=== PATIENT | female | born 2000 | race Caucasian/White ===

== ENCOUNTER 2024-07-25 11:25 | Day surgery (SDC) | payer OTHER ==
[~2024-07-25] VITALS: Ht 170.2 cm; Wt 64.4 kg
[~2024-07-25 11:25] MED LIST: LR 1,000 ML IV SCH; NOXI1TAB PO; PRENTAB9 PO
[2024-07-25 12:13] LABS: BASO % 0.3 % (0.0-1.0); EOS # 0.1 10^3/uL (0.0-0.5); EOS % 2.2 % (0.0-3.0); HEMATOCRIT 36.8 % (36.0-47.0); HEMOGLOBIN 12.3 g/dl (12.0-15.5); LYMPH # 1.4 10^3/uL (1.5-5.0); LYMPH % 24.5 % (24.0-44.0); MEAN CORPUSCULAR HEMOGLOBIN 29.9 pg (27.0-33.0); MEAN CORPUSCULAR HGB CONC 33.4 g/dl (32.0-36.5); MEAN CORPUSCULAR VOLUME 89.5 fl (80.0-96.0); MONO # 0.5 10^3/uL (0.0-0.8); MONO % 7.8 % (2.0-8.0); NEUTROPHILS # 3.8 10^3/uL (1.5-8.5); NEUTROPHILS % 64.9 % (36.0-66.0); PLATELET COUNT, AUTOMATED 209 10^3/uL (150-450); RED BLOOD COUNT 4.11 10^6/uL (4.00-5.40); WHITE BLOOD COUNT 5.9 10^3/uL (4.0-10.0)
[2024-07-25] MEDS ORDERED: MIDAZOLAM INJ 2MG/2ML VIAL As Ordered ONE (13:25)
[2024-07-25] MEDS ORDERED: fentaNYL 100 MCG/2 ML INJECTION As Ordered ONE (13:25)
[2024-07-25] MEDS ORDERED: LIDOCAINE 2% 100MG/5ML SDV (FOR ANES.) As Ordered ONE (13:27)
[2024-07-25] MEDS ORDERED: propofoL 200 MG/20 ML VIAL As Ordered ONE (13:30)
[2024-07-25] MEDS ORDERED: ONDANSETRON 4MG 2ML VIAL As Ordered ONE (13:31)
[2024-07-25] MEDS: DOXYCYCLINE HYCLATE 100MG TABLET PO ONE (13:48)
[2024-07-25] MEDS ORDERED: KETOROLAC 60MG 2ML VIAL As Ordered ONE (14:10)
[2024-07-25] MEDS ORDERED: METOCLOPRAMIDE INJ 10MG/2ML VIAL As Ordered ONE (14:10)
[2024-07-25] MEDS ORDERED: ACETAMINOPHEN 1000MG/100ML IV BAG As Ordered ONE (14:18)
[2024-07-25] MEDS: LIDOCAINE 1% MDV 20ML VIAL As Ordered ONE (14:25)
[2024-07-25] MEDS: TRANEXAMIC ACID 100 MG/ML 10ML VIAL As Ordered ONE (14:36)
[2024-07-25] MEDS: METHYLERGONOVINE MALEATE 0.2MG/ML 1ML VIAL As Ordered ONE (14:45)
[2024-07-25] MEDS ORDERED: oxyCODONE 5MG TAB PO PRN (15:00)
[2024-07-25] MEDS ORDERED: LR 1,000 ML IV SCH (15:00)
[2024-07-25] MEDS ORDERED: HYDROMORPHONE HCL 0.5 MG/ 0.5 ML SYRINGE IV PRN (15:00)
[2024-07-25] MEDS: SILVER NITRATE APPLICATOR (1 = QTY 10) As Ordered ONE (15:13)
[2024-07-25] MEDS ORDERED: CARBOPROST TROMETHAMINE 250 MCG/ML AMP As Ordered ONE (15:31)
[2024-07-25] MEDS: fentaNYL 100 MCG/2 ML INJECTION IV PRN (16:24)
[2024-07-25 16:52] LABS: BASO % 0.3 % (0.0-1.0); EOS % 0.4 % (0.0-3.0); HEMATOCRIT 29.7 % (36.0-47.0); HEMOGLOBIN 9.7 g/dl (12.0-15.5); LYMPH # 0.8 10^3/uL (1.5-5.0); LYMPH % 10.9 % (24.0-44.0); MEAN CORPUSCULAR HEMOGLOBIN 29.7 pg (27.0-33.0); MEAN CORPUSCULAR HGB CONC 32.7 g/dl (32.0-36.5); MEAN CORPUSCULAR VOLUME 90.8 fl (80.0-96.0); MONO % 1.9 % (2.0-8.0); NEUTROPHILS # 6.4 10^3/uL (1.5-8.5); NEUTROPHILS % 86.1 % (36.0-66.0); PLATELET COUNT, AUTOMATED 176 10^3/uL (150-450); RED BLOOD COUNT 3.27 10^6/uL (4.00-5.40); WHITE BLOOD COUNT 7.4 10^3/uL (4.0-10.0)
[2024-07-25 16:53] LABS: MONO # 0.1 10^3/uL (0.0-0.8)
[2024-07-25] MEDS: ONDANSETRON 4MG 2ML VIAL IV PRN (17:15)
[2024-07-25 17:16] LABS: INR 1.15
[2024-07-25 17:21] LABS: ALBUMIN 3.1 G/DL (3.2-5.2); ALKALINE PHOSPHATASE 42 U/L (35-104); ALT/SGPT 12 U/L (7.0-40); AST/SGOT 10 U/L (<34); BILIRUBIN,TOTAL 0.5 MG/DL (0.3-1.2); BLOOD UREA NITROGEN 6 MG/DL (9-23); CALCIUM LEVEL 8.1 MG/DL (8.5-10.1); CARBON DIOXIDE LEVEL 22 MMOL/L (20-31); CHLORIDE LEVEL 107 MMOL/L (98-107); CREATININE FOR GFR 0.59 MG/DL (0.55-1.30); GLOMERULAR FILTRATION RATE > 60.0 (>60); GLUCOSE, FASTING 134 MG/DL (60-100); POTASSIUM SERUM 3.6 MMOL/L (3.5-5.1); SODIUM LEVEL 139 MMOL/L (136-145); TOTAL PROTEIN 5.7 G/DL (5.7-8.2)
[2024-07-25] MEDS: KETOROLAC 30 MG/ML 1ML VIAL IV ONE (17:29)
[2024-07-25] MEDS: HYDROMORPHONE HCL 0.5 MG/ 0.5 ML SYRINGE IV PRN (18:08)
[2024-07-25] MEDS: oxyCODONE 5MG TAB PO PRN (18:18)
[2024-07-25 19:55] VITALS: BP 112/59; TEMP 98.3; O2SAT 96
== END 2024-07-25 20:00 | disposition home or self-care (01) ==
LOC: M SDC 11:25
PROVIDERS: ATTEND Obstetrics & Gynecology
DX: O02.1 Missed abortion (principal)
CPT/HCPCS: 36415; 59820; 80053; 84702; 85025; 85384; 85610; 86850; 86900; 86901; 88305; J0131; J1100; J1171; J1885; J2210; J2250; J2405; J2765; J3010; S0191